=== PATIENT | male | born 1990 | race Caucasian/White ===

== ENCOUNTER → 2020-02-17 15:40 | Outpatient (CLI) | payer OTHER, SELFPAY ==
--- NOTE | 2020-02-17 15:47 | XR_ITS ---
PROCEDURE: XR HAND LT MIN 3V CLINICAL INDICATION: LEFT HAND PAIN Left hand pain and swelling, injury with pain COMPARISON: No exams were available for comparison FINDINGS: No fracture or dislocation. No lytic or blastic change. There is normal mineralization. The joint spaces are well-preserved. No significant degenerative/arthritic changes. No erosive changes evident. Other findings:None. IMPRESSION: No acute findings. Dictated by: Jake Posada MD 02/17/2020 18:23 Electronically signed by Jake Posada MD in [place] 02/17/2020 18:23
--- NOTE | 2020-02-17 15:47 | XR_ITS ---
PROCEDURE: XR CHEST 2V CLINICAL HISTORY: LUNG NODULE Current smoker, follow-up lung nodule COMPARISON: XR CHEST 2V from 08/24/2019 FINDINGS: The cardiomediastinal silhouette and pulmonary vascularity are within normal limits. Faint nodular opacity once again noted in the region of the lingula. This is not significantly changed. Consider CT for more thorough evaluation in this patient with history of smoking. The No acute bony abnormalities. IMPRESSION: Indeterminate 11 mm lingular nodule. Suggest CT for more thorough evaluation Dictated by: Jake Posada MD 02/17/2020 18:25 Electronically signed by Jake Posada MD in [place] 02/17/2020 18:25
== END ==
PROVIDERS: PCP Family Medicine; Visit Provider Family Medicine
DX: M79.642 Pain in left hand (principal); R91.1 Solitary pulmonary nodule
CPT/HCPCS: 71046; 73130

== ENCOUNTER → 2020-02-26 10:13 | Outpatient (CLI) | payer OTHER, SELFPAY ==
--- NOTE | 2020-02-26 10:30 | CT_ITS ---
PROCEDURE: CT CHEST W CON CLINCAL INDICATION: Follow-up lung nodule Abnormal chest x-ray, solitary pulmonary nodule COMPARISON: XR CHEST 2V from 02/17/2020 TECHNIQUE: IV Contrast: 75ml Optiray 350 Axial images obtained with sagittal and coronal reformats. All CT scans at the facility use one or more dose reduction, viz: automated exposure control, ma/kV adjustment per patient size (including targeted exams where dose is matched to indication, i.e. head), or iterative reconstruction technique. FINDINGS: HEART AND MEDIASTINAL STRUCTURES: Unremarkable. LUNGS AND PLEURAL SPACES: There is a 1 cm nodule within the left upper lobe anteriorly corresponding to the radiographic abnormality. This does appear to contain a focus of calcification centrally and is consistent with a granuloma. The remaining lungs are clear. No suspicious nodules are evident. BONY STRUCTURES: No acute bony abnormalities apparent. UPPER ABDOMEN: There is a small amount of gas in the distal esophagus. This is nonspecific but could be seen with reflux. There is a small pericardial lymph node at 1 cm nonspecific. ADDITIONAL FINDINGS: There are few scattered small nodes in the axilla IMPRESSION: Left upper lobe nodule is partially calcified and is consistent with a granuloma. No further follow-up needed. No acute finding. Dictated by: Jake Posada MD 02/27/2020 11:15 Electronically signed by Jake Posada MD in [place] 02/27/2020 11:15
== END ==
PROVIDERS: PCP Family Medicine; Visit Provider Family Medicine
DX: R91.1 Solitary pulmonary nodule (principal)
CPT/HCPCS: 71260; Q9967

== ENCOUNTER 2020-06-13 12:01 | Emergency (ER) | payer OTHER, SELFPAY ==
[2020-06-13 12:07] VITALS: BP 159/103; PULSE 94; RESP 18; TEMP 36.6; O2SAT 99; BMI 28.5
--- NOTE | 2020-06-13 12:13 | HMH.EDUTC ---
[facility] [place]: Common cold virus Disposition: Home, Self-Care Condition on Discharge: Good Instructions: Common Cold Additional Instructions: No sign of a bacterial infection. Likely viral. Viruses can take 7-14 days to run their course. Nasal saline and bulb syringe or nose Joaquina to remove nasal drainage to help with nasal congestion. Hard to eat, drink, sleep with nasal congestion so important to keep this cleaned out. Monitor temp. Tylenol or Motrin as needed for pain or fever Encourage fluids, water, Gatorade, Powerade, Pedialyte if /toddler/child Warm salt water gargles Warm fluids Sore throat lozenges Sleep elevated Humidifier/vaporizer Your covid swab was sent. These results are typically sent to the primary care. Be sure you follow-up in 2-3 days if no improvement so we can review the results and treat if necessary if you do not have a primary care, I recommend to get 1 but in the meantime, call for results. Follow-up immediately for new or worsening symptoms or no noticeable improvement over the next 48-72 hours. self isolate until results of covid swab is known. Prescriptions: Fluticasone Propionate [Flonase 50mcg nasal spray 16gm] 1 spr NS DAILY 1 Days #1 bottle Prescription Printed Referrals: Keo Iraheta MD [Primary Care Provider] - Forms: Work/School Release Time of Disposition: 12:19 Medical Decision Making - Walker Inquiry Pt receiving controlled substance: No Vital Signs: 06/13/20 12:07 Temperature 97.9 F Temperature Source Oral Pulse Rate [Radial] 94 H Respiratory Rate 18 Blood Pressure [Right Arm] 159/103 H Blood Pressure Mean [Right Arm] 121 Blood Pressure Source [Right Arm] Automatic Cuff Blood Pressure Position [Right Arm] Sitting 02 Sat by Pulse Oximetry 99 Oxygen Delivery Method Room Air Orders (Tests/Meds): ORDERS Category Date Time Status Covid-19 Nasal PCR Sendout [facility] 06/13/20 12:[address] [facility] [place] - General Chief complaint: [facility] Stated complaint: Sore throat, cough, congestion Time Seen by Provider: 06/13/20 12:13 Mode of Arrival: Ambulatory Source of Information: Patient Limitations: No Limitations Description of Symptoms (Recalled from Triage Doc. by RN): congested, cough, phlem, diarrhea HEENT Symptoms (Recalled from RN notes): Yes Resp Symptoms (Recalled from RN notes): No Skin Symptoms (Recalled from RN notes): No MS Symptoms (Recalled from RN notes): No Functional Status (Recalled from RN notes): wnl - History of Present Illness Provider Complaint: 30 yr old male presents for sore throat, clear nasal congestion, diarrhea and cough for 2 days. pt states he has taken otc dayquil and nightquil - Related Data Previous Rx's Medication Instructions Recorded Fluticasone Propionate [Flonase 1 spr NS DAILY 1 Days #1 bottle 06/13/20 50mcg nasal spray 16gm] Allergies Allergy/AdvReac Type Severity Reaction Status Date / Time No Known Allergies Allergy Unverified 02/26/20 13:30 - Worker's Comp Is this a Worker's Comp case?: No [facility] History - Hepatitis A Screen Drug use history?: No High risk sexual behaviors?: No History of sexually transmitted infection?: No Currently employed?: No Childcare worker?: No Do you have indoor plumbing?: Yes Do you have electricity?: Yes Attestation statement:: This patient has been screened for Hepatitis A risk factors. I have reviewed the patient's past medical history: Yes - Social History Smoking Status: Current every day smoker Tobacco Type: cigarettes # Packs/Day (cigarettes): 1 Alcohol Intake: never Occupational Status: employed ROS Obtained: Yes Systems reviewed as appropriate & no additional complaints - Constitutional Constitutional: Reports system reviewed and no additional complaints, except as docu, Reports body ache, Denies fever(s), Reports malaise - Eyes Eyes: Reports system reviewed and no addition
[2020-06-13 12:45] VITALS: BP 159/103; PULSE 94; RESP 18; TEMP 36.6; O2SAT 99
[2020-06-14 20:54] LABS: Covid-19 Nasal PCR Sendout UK Not Detected
== END 2020-06-13 12:46 | disposition home or self-care (01) ==
PROVIDERS: Emergency Provider Nurse Practitioner Family; PCP Family Medicine
DX: J00 Acute nasopharyngitis [common cold] (principal); Z20.828 Contact with and (suspected) exposure to other viral communicable diseases; F17.210 Nicotine dependence, cigarettes, uncomplicated
CPT/HCPCS: 99201; U0003

== ENCOUNTER → 2020-11-13 10:54 | Outpatient (CLI) | payer OTHER, SELFPAY ==
--- NOTE | 2020-11-13 10:58 | XR_ITS ---
PROCEDURE: XR KNEE RT 3V Referring Doctor: Keo Iraheta Patient Age:30Y CLINICAL INDICATION: RIGHT KNEE PAIN Right anterior knee pain 6 months no injury COMPARISON: No exams were available for comparison TECHNIQUE: Right knee 3 View AP, Oblique, Lateral FINDINGS: Right knee intact with no fracture or dislocation. No lytic or blastic change. There is normal mineralization. The joint spaces are well-preserved. No significant degenerative/arthritic changes. No erosive changes evident. No significant joint effusion evident. Likely upper normal joint fluid at suprapatellar bursa The patella appears to be normal size and position on this study but If pain persist a sunrise view of patella may be of benefit to better evaluate patellofemoral joint IMPRESSION: Right knee intact, unremarkable. Dictated by: Kirill Boss MD 11/13/2020 16:09 Kirill Boss MD in [place] 11/13/2020 16:09
== END ==
PROVIDERS: PCP Family Medicine; Visit Provider Family Medicine
DX: M25.561 Pain in right knee (principal)
CPT/HCPCS: 73562

== ENCOUNTER 2020-12-21 18:22 | Emergency (ER) | payer OTHER, SELFPAY ==
[2020-12-21 18:22] VITALS: BP 132/96; PULSE 96; RESP 16; TEMP 36.8; O2SAT 100; BMI 28.3
--- NOTE | 2020-12-21 18:56 | HMH.EDUTC ---
[facility] [place] Dis[place] Clinical Impression: Encounter for laboratory testing for COVID-19 virus Disposition: Home, Self-Care Condition on Discharge: Good Instructions: DI for Nausea -- Adult, DI for COVID-19 (Suspected or Confirmed ), Coronavirus Disease 2019 Additional Instructions: *Monitor Temp, Over the counter Motrin or Tylenol as directed/as needed Tylenol every 4 hours and Motrin every 6 hours (as long as your family doctor has told you that you can take it) for fever or pain. and straight to ER if unable to lower temp less than 101.0 after medication given ? Avoid fruit juices, as these do not replace minerals and can actually increase diarrhea. ? Children and adults can use sports drinks to replenish electrolytes. Younger children and infants should use products formulated for children, like oral rehydration solutions. ? Eat food in small amounts and let your stomach recover. ? Get lots of rest. You may feel tired or weak. ? No greasy or fried foods for the next 24-48 hours BRAT diet Bananas Rice Apples and New [place] ? Make sure to drink plenty of liquids ? Return if needed ? Straight to ER if any life threatening symptoms ? Zofran as prescribed ? Follow up with family doctor in the next 48-72 hours if no improvement or any worsening of symptoms Follow up IMMEDIATELY for new or worsening symptoms or no Noticeable improvement over the next 48-72 hours. 911 for difficulty breathing or swallowing You were tested for today for COVID19 your test result should be back in the next 24-48 hours, you may call to the [facility] to see if your test results are back in the next 48 hours [phone] [facility] hours are 9am-9pm You was given a handout with instructions for Self Quarantine and Self isolation for while you wait on test results and what to do if they are positive If you are positive the Health Dept will be contacting you also Prescriptions: Ondansetron [Zofran 4mg ODT] 4 mg PO TIDP PRN #9 tab PRN Reason: Nausea Transmission Status: Pending to [id number] Referrals: Keo Iraheta MD [Primary Care Provider] - As needed Forms: Work/School Release Time of Disposition: 18:59 Medical Decision Making - Walker Inquiry Pt receiving controlled substance: No Walker was queried for this patient: No Vital Signs: 12/21/20 18:22 Temperature 98.2 F Temperature Source Oral Pulse Rate [Right] 96 H Respiratory Rate 16 Blood Pressure [Right Arm] 132/96 H Blood Pressure Mean [Right Arm] 108 Blood Pressure Source [Right Arm] Automatic Cuff Blood Pressure Position [Right Arm] Sitting 02 Sat by Pulse Oximetry 100 Oxygen Delivery Method Room Air Orders (Tests/Meds): ORDERS Category Date Time Status Covid-19 Nasal PCR ([facility]) Routine Lab 12/21/20 18:47 Received [facility] [place] HPI - General Stated complaint: covid test Time Seen by Provider: 12/21/20 18:56 Mode of Arrival: Ambulatory Source of Information: Patient Limitations: No Limitations Description of Symptoms (Recalled from Triage Doc. by RN): pt lost taste today, nauseated started today HEENT Symptoms (Recalled from RN notes): Yes (covid symptoms) Resp Symptoms (Recalled from RN notes): No Skin Symptoms (Recalled from RN notes): No MS Symptoms (Recalled from RN notes): No Functional Status (Recalled from RN notes): na - History of Present Illness Provider Complaint: Patient states that he has been having nausea all day and noticed earlier that he loss his sense of taste States that he has not had any fever or body aches just not been able to taste anything today - Related Data Previous Rx's Medication Instructions Recorded Fluticasone Propionate [Flonase 1 spr NS DAILY 1 Days #1 bottle 06/13/20 50mcg nasal spray 16gm] Ondansetron [Zofran 4mg ODT] 4 mg PO TIDP PRN #9 tab 12/21/20 Allergies Allergy/AdvReac Type Severity Reaction Status Date / Time No Known Allergies Allergy Unverified 02/26/20 13:30 - Worker's Comp Is this a Wor
[2020-12-21 19:18] VITALS: BP 132/87; PULSE 95; RESP 16; TEMP 37.2; O2SAT 98
== END 2020-12-21 19:19 | disposition home or self-care (01) ==
PROVIDERS: Emergency Provider Nurse Practitioner; PCP Family Medicine
DX: Z20.822 Contact with and (suspected) exposure to COVID-19 (principal); R43.9 Unspecified disturbances of smell and taste; R11.0 Nausea
CPT/HCPCS: 99202; G0463; U0003

== ENCOUNTER 2021-05-23 09:54 | Emergency (ER) | payer OTHER, SELFPAY ==
[2021-05-23 11:45] VITALS: BP 140/89; PULSE 76; RESP 16; TEMP 37; O2SAT 99; BMI 28.2
--- NOTE | 2021-05-23 12:15 | HMH.EDUTC ---
[facility] [place] Clinical Impression: Encounter for laboratory testing for COVID-19 virus Disposition: Home, Self-Care Condition on Discharge: Good Instructions: DI for COVID-19 (Suspected or Confirmed ), Preventing the Spread of Coronavirus Discharge Instructions Additional Instructions: *Monitor Temp, Over the counter Motrin or Tylenol as directed/as needed Tylenol every 4 hours and Motrin every 6 hours (as long as your family doctor has told you that you can take it) for fever or pa-in. and straight to ER if unable to lower temp less than 101.0 after medication given *Warm salt water gargles may help to soothe the throat *Throat Lozenges *Warm fluids like tea with honey may help to soothe the throat *Sleep elevated *Humidifier/Vaporizer Follow up IMMEDIATELY for new or worsening symptoms or no Noticeable improvement over the next 48-72 hours. 911 for difficulty breathing or swallowing You were tested for today for COVID19 your test result should be back in the next 24-48 hours, Check the [facility] Portal to see if your test results are back in the next 48 it may say detected that means your result is positive.You was given handout instructions on how log on and see your results. If you do not have internet access you may call the [facility] for your results [phone] You was given a handout with instructions for Self Quarantine and Self isolation for while you wait on test results and what to do if they are positive If you are positive the Health Dept will be contacting you also Make sure to take your Vitamins Vit. C Vit D and Zinc if you can take them Referrals: Keo Iraheta MD [Primary Care Provider] - Forms: Work/School Release Time of Disposition: 12:18 Medical Decision Making - Walker Inquiry Pt receiving controlled substance: No Walker was queried for this patient: No Vital Signs: 05/23/21 11:45 Temperature 98.6 F Temperature Source Oral Pulse Rate [Right Brachial] 76 Respiratory Rate 16 Blood Pressure [Right Arm] 140/89 Blood Pressure Mean [Right Arm] 106 Blood Pressure Source [Right Arm] Automatic Cuff Blood Pressure Position [Right Arm] Sitting 02 Sat by Pulse Oximetry 99 Oxygen Delivery Method Room Air Orders (Tests/Meds): ORDERS Category Date Time Status Covid-19 Nasal PCR ([facility]) Routine Lab 05/23/21 11:52 Received [facility] [place] - General Stated complaint: Covid Test Time Seen by Provider: 05/23/21 12:15 Mode of Arrival: Ambulatory Source of Information: Patient Limitations: No Limitations Description of Symptoms (Recalled from Triage Doc. by RN): COVID TEST D/T EXPOSURE, DENIES SYMPTOM HEENT Symptoms (Recalled from RN notes): No Resp Symptoms (Recalled from RN notes): No Skin Symptoms (Recalled from RN notes): No MS Symptoms (Recalled from RN notes): No Functional Status (Recalled from RN notes): WNL - History of Present Illness Provider Complaint: Patient state that he was recently exposed to COVID state that work is having him get tested before he can return but denies any symptoms at this time - Related Data Previous Rx's Medication Instructions Recorded Fluticasone Propionate [Flonase 1 spr NS DAILY 1 Days #1 bottle 06/13/20 50mcg nasal spray 16gm] Ondansetron [Zofran 4mg ODT] 4 mg PO TIDP PRN #9 tab 12/21/20 Allergies Allergy/AdvReac Type Severity Reaction Status Date / Time No Known Allergies Allergy Unverified 02/26/20 13:30 - Worker's Comp Is this a Worker's Comp case?: No [facility] History - Hepatitis A Screen Drug use history?: No High risk sexual behaviors?: No History of sexually transmitted infection?: No Currently employed?: No Childcare worker?: No Do you have indoor plumbing?: Yes Do you have electricity?: Yes Attestation statement:: This patient has been screened for Hepatitis A risk factors. I have reviewed the patient's past medical history: Yes - Social History Smoking Status: Current every day smoker Tobacco Type
[2021-05-23 12:22] VITALS: BP 140/89; PULSE 76; RESP 16; TEMP 37; O2SAT 99
--- NOTE | 2021-05-24 12:42 | PC.NURSE ---
Notified pt of results
== END 2021-05-23 12:26 | disposition home or self-care (01) ==
PROVIDERS: Emergency Provider Nurse Practitioner; PCP Family Medicine
DX: U07.1 COVID-19 (principal); F17.210 Nicotine dependence, cigarettes, uncomplicated
CPT/HCPCS: 99202; G0463; U0003

== ENCOUNTER → 2021-09-20 15:50 | Outpatient (CLI) | payer OTHER, SELFPAY | PROVIDERS: PCP Family Medicine; Visit Provider Nurse Practitioner | DX: Z20.822 Contact with and (suspected) exposure to COVID-19 (principal) | CPT/HCPCS: C9803; U0003; U0005 ==

== ENCOUNTER → 2021-09-26 17:22 | Outpatient (CLI) | payer OTHER, SELFPAY | PROVIDERS: PCP Family Medicine; Visit Provider Nurse Practitioner | DX: U07.1 COVID-19 (principal) | CPT/HCPCS: C9803; U0003; U0005 ==

== ENCOUNTER 2022-11-03 17:14 | Emergency (ER) | payer BC, SELFPAY ==
[2022-11-03 17:40] VITALS: BP 158/97; PULSE 93; RESP 20; TEMP 37.4; O2SAT 100; BMI 31.6
--- NOTE | 2022-11-03 18:23 | EXP.UTC ---
Discharge Plan Disposition Patient Disposition: Home, Self-Care Condition: Good Prescriptions Prescriptions: New azithromycin [Zithromax Z-Jonah] 250 mg tablet See Rx Instructions .ROUTE .COMPLEX Qty: 6 0RF Rx Instructions: For 250 mg dose pack: take 500 mg today (day 1), then 250 mg for 4 days (days 2-5) prednisone 20 mg tablet 20 mg PO BID Qty: 10 0RF Referrals Follow up/Referrals: Keo Iraheta MD [Primary Care Provider] - See instructions Clinical Impressions Clinical Impression: Sinusitis Instructions Patient Instructions: DI for Sinusitis Discharge ED Provider: Meredith Chavez [facility] HPI General Stated complaint: sore throat, drainage, Mode of Arrival: Ambulatory Source of Information: Patient Limitations: No Limitations Time Seen by Provider: 11/03/22 18:24 Description of Symptoms (Recalled from Triage Doc. by RN): sore throat, congestion HEENT Symptoms (Recalled from RN notes): Yes Resp Symptoms (Recalled from RN notes): No Skin Symptoms (Recalled from RN notes): No MS Symptoms (Recalled from RN notes): No Functional Status (Recalled from RN notes): n/a History of Present Illness Provider Complaint: Sore throat, congestion X 2 days. No fever. Requests injections. Onset (ago): day(s) (2) Relieving factors: none Exacerbating factors: none Associated symptoms: cough and malaise Treatments prior to arrival: none Related Data Previous Rx's Medication Instructions Recorded azithromycin 250 mg tablet See Rx Instructions PO .COMPLEX #6 11/03/22 (Zithromax Z-Jonah) tabs prednisone 20 mg tablet 20 mg PO BID #10 tabs 11/03/22 Allergies Allergy/AdvReac Type Severity Reaction Status Date / Time No Known Allergies Allergy Verified 11/03/22 18:01 Worker's Comp Is this a Worker's Comp case?: No [facility] Disclaimer: The information contained in this section may have been updated after the patient was seen, as this information can be updated by other users. Social History Smoking Status: Current every day smoker tobacco type: cigarettes packs per day: 1 second hand exposure: Yes alcohol intake: never current occupational status: employed Travel in the last 8 weeks: None ROS Obtained: Yes All systems reviewed & no additional complaints except as documented Constitutional Constitutional: Reports malaise ENT Ears, Nose, Mouth, and Throat: Reports nasal congestion, Reports sinus pain and Reports sinus pressure Respiratory Respiratory: Reports chest congestion and Reports cough Physical Exam General General appearance: alert and in no apparent distress Head Head exam: atraumatic, normocephalic and normal inspection Eye Eye exam: Present normal appearance, PERRL and EOMI ENT ENT exam: Present normal exam, normal oropharynx, mucous membranes moist and normal external ear exam Expanded ENT Exam TM/Canal exam: Bilateral TM: erythema Nose exam: Present sinus tenderness Throat exam: Present tonsillar erythema and other (PND) Neck Neck exam: Present normal inspection, full ROM and trachea midline; Absent meningismus or lymphadenopathy Chest Chest inspection: Present normal inspection and symmetric chest wall rise; Absent tenderness Respiratory Respiratory exam: Present normal lung sounds bilaterally; Absent respiratory distress Cardiovascular Cardiovascular exam: Present regular rate and normal rhythm; Absent JVD Abdominal Exam Abdominal exam: Present soft and normal bowel sounds; Absent distention, tenderness or guarding Extremities Exam Extremities exam: Present normal inspection, full ROM and normal capillary refill; Absent calf tenderness Back Exam Back exam: Present normal inspection; Absent tenderness Neurological Exam Neurological exam: Present alert and oriented X3 Psychiatric Psychiatric exam: Present normal affect and normal mood Skin Skin exam: Present warm, dry, intact and normal color Lymphati
[2022-11-03 18:46] VITALS: BP 158/97; PULSE 93; RESP 20; TEMP 37.4; O2SAT 100
== END 2022-11-03 18:46 | disposition home or self-care (01) ==
PROVIDERS: Emergency Provider Physician Assistant; PCP Family Medicine
DX: J32.9 Chronic sinusitis, unspecified (principal)
CPT/HCPCS: 96372; 99212; 99213; G0463; J0696

== ENCOUNTER 2023-05-23 16:58 | Emergency (ER) | payer BC, SELFPAY ==
[2023-05-23 16:58] VITALS: BP 124/73; PULSE 101; RESP 18; TEMP 36.9; O2SAT 99; BMI 30.3
--- NOTE | 2023-05-23 17:17 | EXP.UTC ---
Discharge Plan Disposition Patient Disposition: Home, Self-Care Condition: Good Prescriptions Prescriptions: No Action dicyclomine 10 mg capsule 10 mg PO ONCE PRN (Reason: abdominal pain) Qty: 30 0RF Referrals Follow up/Referrals: Keo Iraheta MD [Primary Care Provider] - See instructions Activity Restrictions/Add. Instructions Additional Instructions/Restrictions: *Monitor Temp, Over the counter Motrin or Tylenol as directed/as needed Tylenol every 4 hours and Motrin every 6 hours (as long as your family doctor has told you that you can take it) for fever or pain. and straight to ER if unable to lower temp less than 101.0 after medication given *Warm salt water gargles may help to soothe the throat *Throat Lozenges? *Warm fluids like tea with honey may help to soothe the throat? *Sleep elevated *Humidifier/Vaporizer Follow up IMMEDIATELY for new or worsening symptoms or no Noticeable improvement over the next 48-72 hours. 911 for difficulty breathing or swallowing You were tested for today for COVID19 your test result should be back in the next 24-48 hours, you may check your results on the [facility] Portal Clinical Impressions Clinical Impression: Viral syndrome Stand Alone Forms Stand Alone Forms: Work/School Release Instructions Patient Instructions: COVID-19 Viral Test, DI for COVID-19 (Suspected or Confirmed ) Discharge ED Provider: Makenna [facility] [place] HPI General Stated complaint: wants covid test, congestion, chills, sore throat Mode of Arrival: Ambulatory Source of Information: Patient Limitations: No Limitations Time Seen by Provider: 05/23/23 17:17 Description of Symptoms (Recalled from Triage Doc. by RN): Patient reports being exposed to covid and now having congestion, sore throat and chills since yesterday. HEENT Symptoms (Recalled from RN notes): Yes Resp Symptoms (Recalled from RN notes): No Skin Symptoms (Recalled from RN notes): No MS Symptoms (Recalled from RN notes): No Functional Status (Recalled from RN notes): wnl History of Present Illness Provider Complaint: Patient state that he was recently exposed to COVID now he is having bodyaches, chills, and sore throat along with nasal congestion States that he is wanting to get tested for COVID Related Data Previous Rx's Medication Instructions Recorded dicyclomine 10 mg capsule 10 mg PO ONCE PRN abdominal pain 01/29/23 #30 caps Allergies Allergy/AdvReac Type Severity Reaction Status Date / Time No Known Allergies Allergy Verified 01/29/23 16:10 Worker's Comp Is this a Worker's Comp case?: No [facility] Disclaimer: The information contained in this section may have been updated after the patient was seen, as this information can be updated by other users. Medical History (Updated 05/23/23 @ 17:25 by Makenna Brown APRN) Asthma Atypical chest pain Common cold virus Encounter for laboratory testing for COVID-19 virus Sinusitis Surgical History (Updated 01/29/23 @ 16:12 by Tony Gil LPN) History of appendectomy Family History (Updated 01/29/23 @ 16:13 by Tony Gil LPN) Father Cancer Mother Hypertension Social History (Updated 01/29/23 @ 16:14 by Tony Gil LPN) Smoking Status: Current every day smoker tobacco type: e-cigarettes years smoked: 1 second hand exposure: Yes alcohol intake: current current occupational status: employed Travel in the last 8 weeks: None ROS Obtained: Yes All systems reviewed & no additional complaints except as documented and Yes Systems reviewed as appropriate & no additional complaints except as documented Constitutional Constitutional: Reports system reviewed and no additional complaints, except as documented, Reports as per HPI, Reports body ache, Reports chills and Reports headache(s) ENT Ears, Nose, Mouth, and Throat: Reports system reviewed and no additional c
[2023-05-23 17:31] VITALS: BP 124/73; PULSE 101; RESP 18; TEMP 36.9; O2SAT 99
== END 2023-05-23 17:32 | disposition home or self-care (01) ==
PROVIDERS: Emergency Provider Nurse Practitioner; PCP Family Medicine
DX: U07.1 COVID-19 (principal); F17.290 Nicotine dependence, other tobacco product, uncomplicated; J45.909 Unspecified asthma, uncomplicated
CPT/HCPCS: 99212; 99213; G0463

== ENCOUNTER 2023-10-01 14:24 | Outpatient (CLI) | payer BC, SELFPAY ==
[2023-10-02 19:24] LABS: H. pylori Breath Test Positive (Negative)
== END 2023-10-01 23:59 ==
LOC: LAB 14:25
PROVIDERS: PCP Family Medicine; Visit Provider Family Medicine
DX: B96.81 Helicobacter pylori [H. pylori] as the cause of diseases classified elsewhere (principal); R10.9 Unspecified abdominal pain
CPT/HCPCS: 83013

== ENCOUNTER 2024-09-16 12:40 | Emergency (ER) | payer BC, SELFPAY ==
--- NOTE | 2024-09-16 13:52 | ED_ITS ---
Discharge Plan Disposition Patient Disposition: Home, Self-Care Condition: Good Prescriptions Prescriptions: New amoxicillin 875 mg tablet 875 mg PO Q12H Qty: 20 0RF methylprednisolone 4 mg Tablets,Dose Pack 4 mg PO DIRECTED 6 Days Qty: 21 0RF Rx Instructions: Take 1 pack as directed for 6 days cueszpkfywmgdny-mnmylbbws-MC [Bromfed DM] 2-30-10 mg/5 mL Syrup 5 ml PO Q6H PRN (Reason: Cough) Qty: 240 0RF ondansetron 4 mg Tablet,Disintegrating 4 mg PO Q8H PRN (Reason: Nausea) Qty: 12 0RF No Action dicyclomine 10 mg capsule 10 mg PO ONCE PRN (Reason: abdominal pain) Qty: 30 0RF Referrals Follow up/Referrals: Keo Iraheta MD [Primary Care Provider] - See instructions Activity Restrictions/Add. Instructions Additional Instructions/Restrictions: Drink plenty of fluids. Take tylenol or ibuprofen for pain or fever. Take the medications as directed. Follow up with your regular doctor. GO TO THE ER FOR ANY WORSENING SYMPTOMS Clinical Impressions Clinical Impression: Sinusitis, Otitis media, Acute viral syndrome Instructions Patient Instructions: Sinusitis, DI for Sinusitis, Ondansetron Print Language Print Language: Moldovan Discharge ED Provider: Jarod Oviedo [facility] General Stated complaint: congestion, fever, cough Time Seen by Provider: 09/16/24 13:52 Related Data Previous Rx's ?Medication ?Instructions ?Recorded dicyclomine 10 mg capsule 10 mg PO ONCE PRN abdominal pain 01/29/23 #30 caps amoxicillin 875 mg tablet 875 mg PO Q12H #20 tabs 09/16/24 jzdqdipgfwnfbia-lfgctkwzfzovbic-NX 5 ml PO Q6H PRN Cough #240 mL 09/16/24 2 mg-30 mg-10 mg/5 mL oral syrup (Bromfed DM) methylprednisolone 4 mg tablets in 4 mg PO DIRECTED 6 days #21 tabs 09/16/24 a dose pack ondansetron 4 mg disintegrating 4 mg PO Q8H PRN Nausea #12 tabs 09/16/24 tablet Allergies Allergy/AdvReac Type Severity Reaction Status Date / Time No Known Allergies Allergy Verified 01/29/23 16:10 [facility] Disclaimer: The information contained in this section may have been updated after the patient was seen, as this information can be updated by other users. Medical History (Updated 09/16/24 @ 14:25 by Jarod Oviedo APRN) Asthma Sinusitis Encounter for laboratory testing for COVID-19 virus Common cold virus Atypical chest pain Surgical History (Updated 01/29/23 @ 16:12 by Tony Gil LPN) History of appendectomy Family History (Updated 01/29/23 @ 16:13 by Tony Gil LPN) Father Cancer Mother Hypertension Social History (Updated 01/29/23 @ 16:14 by Tony Gil LPN) Smoking Status: Current every day smoker tobacco type: e-cigarettes years smoked: 1 second hand exposure: Yes alcohol intake: current alcohol intake frequency: holidays/special occasions only current occupational status: employed Travel in the last 8 weeks: None Have you lived/traveled outside [place] in past 30 days?: No Contact w/someone who lives/traveled outside [place] past 30 days?: No Exposure to someone with infectious disease in past 14 days?: No Do you have a fever (greater than 100.4 F or 38 C)?: Yes Have you tested positive for COVID-19: No Exposed to someone with COVID-19 in past 14 days?: No Do you have a sore throat?: No Do you have a cough?: Yes Do you have any weakness?: No Do you have any diarrhea?: No Are you experiencing any unusual bleeding?: No Do you have any muscle aches/pain?: No Do you have any abdominal pain?: No Are you experiencing loss of taste or smell?: No ROS Obtained: Yes All systems reviewed & no additional complaints except as documented Constitutional Constitutional: Reports poor appetite Eyes Eyes: Reports system reviewed and no additional complaints, except as documented ENT Ears, Nose, Mouth, and Throat: Reports as per HPI Cardiovascular Cardiovascular: Reports system reviewed and no additional complaints, except as documented and Denies chest pain Respiratory Respiratory: Denies shortness of breath, Denies chest congestion, Reports cough, Denies stridor and Denies wheezing Gastrointestinal Gastrointestingal: Reports system reviewed and no additional complaints, except as documented; Denies abdominal pain, diarrhea or vomiting Musculoskeletal Musculoskeletal: Reports system reviewed and no additional complaints, except as documented and Denies arthralgias Integumentary/Breasts Skin/Breast: Reports system reviewed and no additional complaints, except as documented and Denies rash Neurologic Neurologic: Denies paresthesias Allergic/Immunologic Allergic/Immunologic: Denies wheezing Physical Exam General General appearance: alert and in no apparent distress Eye Eye exam: Present normal appearance, PERRL and EOMI ENT ENT exam: Present mucous membranes moist and normal external ear exam Expanded ENT Exam External ear exam: Present normal external inspection TM/Canal exam: Bilateral TM: erythema and bulging Nose exam: Absent sinus tenderness Nasal speculum exam: Bilateral: normal Mouth exam: Present normal external inspection; Absent drooling Teeth exam: Present normal inspection Throat exam: Present tonsillar erythema and tonsillomegaly Neck Neck exam: Present normal inspection, full ROM and trachea midline; Absent tenderness, lymphadenopathy or thyromegaly Chest Chest inspection: Present normal inspection and symmetric chest wall rise; Absent tenderness or rash Respiratory Respiratory exam: Present normal lung sounds bilaterally; Absent respiratory distress, wheezes, stridor or accessory muscle use Cardiovascular Cardiovascular exam: Present regular rate, normal rhythm and normal heart sounds Abdominal Exam Abdominal exam: Present soft; Absent distention, tenderness, guarding, rebound or rigidity Extremities Exam Extremities exam: Present normal inspection, full ROM and normal capillary refill; Absent tenderness or calf tenderness Back Exam Back exam: Present normal inspection and full ROM; Absent tenderness Neurological Exam Neurological exam: Present alert and oriented X3 Psychiatric Psychiatric exam: Present normal affect and normal mood Skin Skin exam: Present warm, dry, intact and normal color Lymphatic Lymphatic Findings: no adenopathy Medical Decision Making Medical Records Medical records reviewed: No I reviewed the patient's medical records. Screening: Per USPSTF and CDC recommendations, given the prevalence of disease in our region, it is our hospital?s policy to screen for HIV and viral Hepatitis for all patients aged 18 and over and those with ongoing risk factors. Walker Inquiry Pt receiving controlled substance: No Lab Data Lab results reviewed: Yes I reviewed the patient's lab results.
[2024-09-16 13:55] VITALS: BP 125/85; PULSE 105; RESP 18; TEMP 37.1; O2SAT 99; BMI 31.6
[2024-09-16 14:30] VITALS: BP 125/85; PULSE 105; RESP 18; TEMP 37.1
[2024-09-16 14:50] LABS: Coronavirus 19, PCR Not Detected (NotDetected); Influenza B, PCR Not Detected (NotDetected)
[2024-09-16 19:43] LABS: Influenza A, PCR Detected (NotDetected)
== END 2024-09-16 14:33 | disposition home or self-care (01) ==
PROVIDERS: Emergency Provider Nurse Practitioner Family; PCP Family Medicine
DX: B34.9 Viral infection, unspecified (principal); J32.9 Chronic sinusitis, unspecified; H66.93 Otitis media, unspecified, bilateral; R50.9 Fever, unspecified; R05.9 Cough, unspecified; R09.81 Nasal congestion; R63.8 Other symptoms and signs concerning food and fluid intake
CPT/HCPCS: 87636; 99212; G0381